=== PATIENT | female | born 1985 | race Caucasian/White ===

== ENCOUNTER 2023-06-03 23:04 | Emergency (ER) | payer OTHER ==
[2023-06-03 23:19] VITALS: BP 156/98; PULSE 82; RESP 20; TEMP 98.6; BMI 44.2
== END 2023-06-04 00:47 | disposition home or self-care (01) ==
LOC: JER 23:04
PROC: 0HQGXZZ Repair Left Hand Skin, External Approach (ICD-10-PCS; principal; 2023-06-03)
DX: S61.211A Laceration without foreign body of left index finger without damage to nail, initial encounter (principal); W26.8XXA Contact with other sharp object(s), not elsewhere classified, initial encounter
CPT/HCPCS: 99282-25

== ENCOUNTER 2023-09-04 20:24 | Emergency (ER) | payer OTHER ==
[2023-09-04 20:38] VITALS: BP 139/82; PULSE 78; RESP 18; TEMP 98.2; BMI 40.7
[2023-09-04] MEDS ORDERED: TETRACAINE 0.5% HCL 0.6ML DROPPER.BOTTLE OD ONE (21:51)
[2023-09-04] MEDS ORDERED: FLUORESCEIN NA 1 EA STRIP OD ONE (21:51)
[2023-09-04] MEDS ORDERED: FLUORESCEIN NA 1 EA STRIP ONE (21:52)
[2023-09-04] MEDS ORDERED: TETRACAINE 0.5% OPHTH SOLN 2 ML BOTTLE ONE (21:52)
[2023-09-04] MEDS ORDERED: ACETAMINOPHEN 500 MG TABLET (FP) PO ONE (23:29)
[2023-09-04] MEDS ORDERED: ACETAMINOPHEN 500 MG TABLET (FP) ONE (23:30)
[2023-09-04] MEDS ORDERED: IBUPROFEN 600 MG TABLET (FP) PO ONE ×2 (23:48→23:55)
== END 2023-09-05 00:36 | disposition home or self-care (01) ==
LOC: JERFT 20:24 → JER 20:24 → JERFT 09-05 00:36
DX: H92.01 Otalgia, right ear (principal); R51.9 Headache, unspecified; R09.81 Nasal congestion; J02.9 Acute pharyngitis, unspecified; H11.31 Conjunctival hemorrhage, right eye; Z20.828 Contact with and (suspected) exposure to other viral communicable diseases
CPT/HCPCS: 70450-TC; 84703; 87651; 99284-25

== ENCOUNTER 2023-09-11 02:28 | Emergency (ER) | payer OTHER ==
[2023-09-11 02:37] VITALS: BP 132/88; PULSE 92; RESP 18; TEMP 98.4; BMI 40.7
[2023-09-11] MEDS ORDERED: ACETAMINOPHEN 325 MG TABLET (FP) PO ONE (03:11)
[2023-09-11] MEDS ORDERED: ACETAMINOPHEN 325 MG TABLET (FP) ONE (03:19)
[2023-09-11] MEDS ORDERED: DEXAMETHASONE SOD PHOSPHATE 10 MG/1 ML VIAL IM ONE (05:47)
[2023-09-11] MEDS ORDERED: DEXAMETHASONE SOD PHOSPHATE 10 MG/1 ML VIAL ONE (06:05)
== END 2023-09-11 06:14 | disposition home or self-care (01) ==
LOC: JER 02:28
PROC: 3E023GC Introduction of Other Therapeutic Substance into Muscle, Percutaneous Approach (ICD-10-PCS; principal; 2023-09-11)
DX: H57.11 Ocular pain, right eye (principal); R51.9 Headache, unspecified
CPT/HCPCS: 70450-TC; 70480-TC; 99284-25; J1100